=== PATIENT | female | born 1955 | race Caucasian/White ===

== ENCOUNTER 2016-12-20 13:27 | Emergency (ER) | payer BC, OTHER ==
[~2016-12-20] VITALS: Ht 160 cm; Wt 56.8 kg
[2016-12-20 13:44] VITALS: BP 137/85; PULSE 75; RESP 16; TEMP 97.4; O2SAT 100
[2016-12-20] MEDS ORDERED: CEFT250S PO (14:30)
[2016-12-20] MEDS ORDERED: FLUT1SPR5 EACH NARE (14:30)
--- NOTE | 2016-12-20 14:30 | PD ---
HPI Chief Complaint: Headache Time Seen by Provider: 14:18 Travel History International Travel<30 days: No Contact w/Intl Traveler<30days: No Traveled to known affect area: No History of Present Illness HPI This is a 61-year-old female who presents to the emergency department with pressure in her sinuses right on the right side above her eyebrow, constant, moderate severity that's been going on for 3 days associated with low-grade fever, nasal congestion and sore throat. She's had a lot of trouble with sinusitis in the past and has had nasal polyps removed. Last year she went to an ENT at [facility] and her symptoms finally improved after she completed a course of Ceftin. She also typically uses Flonase but she is out of it. [facility] Past Medical History Medical other: Yes (ASTEOPEROSIS ) Tetanus Vaccination: > 5 Years Influenza Vaccination: Yes Past Surgical History Hysterectomy: Yes Social History Alcohol Use: No Tobacco Use: No Substance Use: No Allergies-Medications (Allergen,Severity, Reaction): Coded Allergies: Shellfish (Verified Allergy, Unknown, Hives, 12/20/16) Tetracycline (Verified Allergy, Unknown, Hives, 12/20/16) Reported Meds & Prescriptions Reported Meds & Active Scripts Active No Active Prescriptions or Reported Medications Review of Systems Except as stated in HPI: all other systems reviewed are Neg Physical Exam Narrative GENERAL:Well appearing, no acute distress SKIN: Focused skin assessment warm and dry. HEAD: Atraumatic. Normocephalic. EYES: Pupils equal and round. No injection or drainage. ENT: Posterior pharyngeal erythema with no exudates. Some cobblestoning of the posterior pharynx. NECK: Trachea midline. CARDIOVASCULAR: Regular rate and rhythm. No murmur appreciated. RESPIRATORY: Clear to auscultation. Breath sounds equal bilaterally. GASTROINTESTINAL: Abdomen soft, non-tender, nondistended. MUSCULOSKELETAL: No obvious deformities. NEUROLOGICAL: Awake and alert. No obvious cranial nerve deficits. Moving all extremities. PSYCHIATRIC: Appropriate mood and affect; insight and judgment normal. Data Data Last Documented VS Vital Signs Date Time Temp Pulse Resp B/P Pulse Ox O2 Delivery O2 Flow Rate FiO2 12/20/16 13:44 97.4 75 16 137/85 100 MDM Medical Decision Making Medical Screen Exam Complete: Yes Emergency Medical Condition: Yes Interpretation(s) Afebrile, no tachycardia, normotensive Differential Diagnosis Bacterial sinusitis, viral sinusitis, viral syndrome Narrative Course This is a 61-year-old female who presents to the emergency department with sinus pressure and congestion. She has a history of recurrent sinusitis and has had polypectomy in the past. She is well-appearing and nontoxic. Ceftin is helped her in the past. I will prescribe her Ceftin and Flonase. I think she is appropriate for outpatient management. Diagnosis Primary Impression: Sinusitis Qualified Code: J01.21 - Acute recurrent ethmoidal sinusitis Patient Instructions: General Instructions Additional Instructions: If you develop severe worsening headache, persistent vomiting, numbness, weakness, difficulty walking or difficulty talking return to the emergency department immediately. Med/Other Pt SpecificInfo: Prescription(s) given Scripts Fluticasone Nasal [place] (Flonase Nasal [place])50 Mcg/Act Spray50 Mcg EACH NARE BID #1 BOTTLE Ref 0 Prov:Malinda Kaur MD 12/20/16 Cefuroxime Liq (Ceftin Liq)250 Mg/5 Ml [id number] Mg PO BID 10 Days Ref 0 Prov:Malinda Kaur MD 12/20/16 Disposition: 01 DISCHARGE HOME Condition: Stable Malinda Kaur MD December 20, 2016 14:30
[2016-12-20] MEDS ORDERED: VENTAER INH (21:04)
[2016-12-20] MEDS ORDERED: MONT10TA2 PO (21:04)
[2016-12-20] MEDS ORDERED: CETI10CA3 PO (21:04)
[2016-12-20] MEDS ORDERED: ALBUAER3 INH (21:04)
[2016-12-20] MEDS ORDERED: TH GCAP (21:04)
[2016-12-20] MEDS ORDERED: CALC500T35 (21:04)
[2016-12-20] MEDS ORDERED: ZOFR8TAB PO (22:28)
[2016-12-21] MEDS ORDERED: PROC10TA PO (15:12)
== END 2016-12-20 14:40 | disposition home or self-care (01) ==
LOC: PHED 13:27
DX: J32.9 Chronic sinusitis, unspecified (principal); M81.0 Age-related osteoporosis without current pathological fracture; Z88.8 Allergy status to other drugs, medicaments and biological substances; A08.4 Viral intestinal infection, unspecified; Z79.899 Other long term (current) drug therapy
CPT/HCPCS: 80048; 81001; 83690; 85025; 96361; 96374; 96376; 99284; J2405; J7030

== ENCOUNTER 2016-12-20 19:16 | Emergency (ER) | payer BC, OTHER ==
[~2016-12-20] VITALS: Ht 160 cm; Wt 56.1 kg
[~2016-12-20 19:16] MED LIST: CEFT250S PO; FLUT1SPR5 EACH NARE
[2016-12-20 19:21] VITALS: BP 133/87; PULSE 88; RESP 14; TEMP 97.9; O2SAT 99
[2016-12-20] MEDS ORDERED: SODIUM CHLOR 0.9% 1000 ML INJ 1,000 ML IV SCH ×2 (20:09→21:45)
[2016-12-20] MEDS ORDERED: SODIUM CHLORIDE 0.9% FLUSH 10 ML FLUSH IV FLUSH PRN (20:15)
[2016-12-20] MEDS ORDERED: ONDANSETRON HCL 4 MG/2 ML VIAL IVP ONE (20:15)
--- NOTE | 2016-12-20 20:15 | PD ---
HPI Chief Complaint: GI Complaint Time Seen by Provider: 20:04 Travel History International Travel<30 days: No Contact w/Intl Traveler<30days: No Traveled to known affect area: No History of Present Illness HPI The patient is a 61-year-old female that was seen earlier today and treated as a sinusitis but she states she had nausea and vomiting along with diarrhea and she was not given anything for nausea. The patient denies any blood in the stool or vomitus. She denies any fever. She has not been able to hold anything down, not even clear liquids today. She does feel dehydrated. She still has her appendix and gallbladder. She is visiting by automobile from [place] and plans to go back to [place] on next Sunday. She has no local primary care physician. PFSH Past Medical History ?: Not Past Surgical History Hysterectomy: Yes Social History Alcohol Use: No Tobacco Use: No Substance Use: No Allergies-Medications (Allergen,Severity, Reaction): Coded Allergies: Shellfish (Verified Allergy, Severe, ANAPHALXIS, 12/20/16) Latex (Verified Allergy, Unknown, Hives, 12/20/16) Tetracycline (Verified Allergy, Unknown, Hives, 12/20/16) Reported Meds & Prescriptions Reported Meds & Active Scripts Active Flonase Nasal [place] (Fluticasone Nasal [place]) 50 Mcg/Act [place] 50 Mcg EACH NARE BID Ceftin Liq (Cefuroxime Axetil) 250 Mg/5 Ml Susp 500 Mg PO BID 10 Days Reported Glucosamine & Chondroitin Cap (Glucosam/Chondr/Collagn/Hyalur) 1 Each Capsule Calcium (Oyster Shell) 500 Mg Tab 1,000 [place] Hfa 18 GM Inh (Albuterol Sulfate) 90 Mcg/Act Aer 1 Puff INH Q4H PRN Proair Hfa 8.5 GM Inh (Albuterol Sulfate) 90 Mcg/Act Aer 1 Puff INH Q4H PRN 108 mcg/actuation Zyrtec (Cetirizine HCl) 10 Mg Capsule 10 Mg PO DAILY Singulair (Montelukast Sodium) 10 Mg Tab 10 Mg PO HS Review of Systems Except as stated in HPI: all other systems reviewed are Neg Physical Exam Narrative GENERAL: The patient is alert, oriented 3 in slight apparent distress with her nausea. Her vital signs are normal. She does appear moderately dehydrated. SKIN: Focused skin assessment warm/dry. No skin rash is present. HEAD: Atraumatic. Normocephalic. EYES: Pupils equal and round. No scleral icterus. No injection or drainage. ENT: No nasal bleeding or discharge. Mucous membranes pink but dry. NECK: Trachea midline. No JVD. CARDIOVASCULAR: Regular rate and rhythm. No murmur appreciated. RESPIRATORY: No accessory muscle use. Clear to auscultation. Breath sounds equal bilaterally. GASTROINTESTINAL: Abdomen soft, non-tender, nondistended. Hepatic and splenic margins not palpable. No guarding or rebound is present. MUSCULOSKELETAL: No obvious deformities. No clubbing. No cyanosis. No edema. NEUROLOGICAL: Awake and alert. No obvious cranial nerve deficits. Motor grossly within normal limits. Normal speech. PSYCHIATRIC: Appropriate mood and affect; insight and judgment normal. Data Data Last Documented VS Vital Signs Date Time Temp Pulse Resp B/P Pulse Ox O2 Delivery O2 Flow Rate FiO2 12/20/16 20:47 85 20 145/87 100 12/20/16 19:21 97.9 Orders Basic Metabolic Panel (Bmp) (12/20/16 20:09) Complete Blood Count With Diff (12/20/16 20:09) Iv Access Insert/Monitor (12/20/16 20:09) Ecg Monitoring (12/20/16 20:09) Oximetry (12/20/16 20:09) Ondansetron Inj (Zofran Inj) (12/20/16 20:15) Sodium Chlor 0.9% 1000 Ml Inj (Ns 1000 M (12/20/16 20:09) Sodium Chloride 0.9% Flush (Ns Flush) (12/20/16 20:15) Lipase (12/20/16 20:41) Ondansetron Inj (Zofran Inj) (12/20/16 21:30) Sodium Chlor 0.9% 1000 Ml Inj (Ns 1000 M (12/20/16 21:45) Urinalysis - C+S If Indicated (12/20/16 22:18) Labs Laboratory Tests Test 12/20/16 20:41 White Blood Count 6.6 TH/MM3 Red Blood Count 4.56 MIL/MM3 Hemoglobin 13.5 GM/DL Hematocrit 40.3 % Mean Corpuscular Volume 88.2 FL Mean Corpuscular Hemoglobin 29.5 PG Mean Corpuscular Hemoglobin 33.4 % Concent Red Cell Distribution Width 11.8 % Platelet Count 254 TH/MM3 Mean Platelet Volume 7.9 FL Neutrophils (%) (Auto) 76.2 % Lymphocytes (%) (Auto) 12.3 % Monocytes (%) (Auto) 9.0 % Eosinophils (%) (Auto) 0.1 % Basophils (%) (Auto) 2.4 % Neutrophils # (Auto) 5.0 TH/MM3 Lymphocytes # (Auto) 0.8 TH/MM3 Monocytes # (Auto) 0.6 TH/MM3 Eosinophils # (Auto) 0.0 TH/MM3 Basophils # (Auto) 0.2 TH/MM3 CBC Comment DIFF FINAL Differential Comment Sodium Level 139 MEQ/L Potassium Level 3.8 MEQ/L Chloride Level 103 MEQ/L Carbon Dioxide Level 26.5 MEQ/L Anion Gap 10 MEQ/L Blood Urea Nitrogen 16 MG/DL Creatinine 0.61 MG/DL Estimat Glomerular Filtration 99 ML/MIN Rate Random Glucose 115 MG/DL Calcium Level 9.5 MG/DL Lipase 89 U/L [facility] Medical Decision Making Medical Screen Exam Complete: Yes Emergency Medical Condition: Yes Medical Record Reviewed: Yes Interpretation(s) The basic metabolic profile is normal and the lipase is normal. The CBC is normal. Differential Diagnosis Viral gastroenteritis, gastritis, pancreatitis, cholecystitis Narrative Course It is now 10:25 PM and the patient has urinated. She is able to sit up small amounts of liquids. She still feels slightly nauseated but she does not want any more nausea medication. The low white count suggest viral etiology. Impression: Viral gastroenteritis Plan: The patient be given Zofran 8 mg 3 times daily. She should drink Diagnosis Primary Impression: Viral gastroenteritis Additional Instructions: As we discussed, drink Gatorade and clear liquids to make sure you stay well- hydrated. Stick with clear liquids for the first day or 2 and had Jell-O, applesauce as you tolerate them. Return to emergency department if you start vomiting again. Med/Other Pt SpecificInfo: Prescription(s) given Scripts Ondansetron (Zofran)8 Mg Tab8 Mg PO TID #30 TAB Ref 0 Prov:Wayne Najera MD 12/20/16 Disposition: 01 DISCHARGE HOME Condition: Stable Wayne Najera MD December 20, 2016 20:14
[2016-12-20 20:45] LABS: BASOPHIL # 0.2 TH/MM3 (0-0.2); BASOPHIL % 2.4 % (0.0-2.0); EOSINOPHIL % 0.1 % (0.0-4.0); HEMATOCRIT 40.3 % (35.0-46.0); HEMO FLAGS DIFF FINAL; LYMPH % 12.3 % (9.0-44.0); LYMPHOCYTE # 0.8 TH/MM3 (1.0-4.8); MEAN CELL VOLUME 88.2 FL (80.0-100.0); MEAN CORPUSCULAR HEMOGLOBIN 29.5 PG (27.0-34.0); MEAN CORPUSCULAR HGB CONC 33.4 % (32.0-36.0); NEUT % 76.2 % (16.0-70.0); PLATELET COUNT 254 TH/MM3 (150-450); RED BLOOD COUNT 4.56 MIL/MM3 (4.00-5.30); RED CELL DISTRIBUTION WIDTH 11.8 % (11.6-17.2); WHITE BLOOD COUNT 6.6 TH/MM3 (4.0-11.0)
[2016-12-20 20:47] VITALS: BP 145/87; PULSE 85; RESP 20; O2SAT 100
[2016-12-20 20:52] LABS: POTASSIUM 3.8 MEQ/L (3.5-5.1)
[2016-12-20 20:55] LABS: BICARBONATE 26.5 MEQ/L (21.0-32.0)
[2016-12-20] MEDS ORDERED: CALC500T35 (21:04)
[2016-12-20] MEDS ORDERED: CETI10CA3 PO (21:04)
[2016-12-20] MEDS ORDERED: VENTAER INH (21:04)
[2016-12-20] MEDS ORDERED: ALBUAER3 INH (21:04)
[2016-12-20] MEDS ORDERED: TH GCAP (21:04)
[2016-12-20] MEDS ORDERED: MONT10TA2 PO (21:04)
[2016-12-20] MEDS ORDERED: ONDANSETRON HCL 4 MG/2 ML VIAL IV ONE (21:30)
[2016-12-20] MEDS ORDERED: ZOFR8TAB PO (22:28)
[2016-12-20 23:17] VITALS: BP 137/74
[2016-12-20 23:19] LABS: BLOOD, URINE LARGE (NEG); GLUCOSE,URINE NEG (NEG); NITRITE,URINE NEG (NEG); PH, URINE 5.5 (5.0-8.5)
[2016-12-20 23:26] LABS: KETONE, URINE 80 OR GREATER mg/dL (NEG)
[2016-12-20 23:29] LABS: URINE COLOR YELLOW (YELLW/STRAW); WBC, URINE 0-2 /hpf (0-5)
[2016-12-20 23:30] LABS: COMMENT (UR) CULT NOT INDICATED; CULTURE IF INDICATED CULT NOT INDICATED; SQUAMOUS EPITHELIAL CELL URINE 0-5 /hpf (0-5)
[2016-12-21] MEDS ORDERED: PROC10TA PO (15:12)
== END 2016-12-21 00:32 | disposition home or self-care (01) ==
LOC: PHED 19:16
DX: A08.4 Viral intestinal infection, unspecified (principal); Z79.899 Other long term (current) drug therapy
CPT/HCPCS: 80048; 81001; 83690; 85025; 96361; 96374; 96376; 99284; J2405; J7030

== ENCOUNTER 2016-12-21 12:43 | Emergency (ER) | payer BC, OTHER ==
[~2016-12-21] VITALS: Ht 160 cm; Wt 57.0 kg
[~2016-12-21 12:43] MED LIST changes: +ALBUAER3 INH; +CALC500T35; +CETI10CA3 PO; +MONT10TA2 PO; +TH GCAP; +VENTAER INH; +ZOFR8TAB PO
[2016-12-21 12:54] VITALS: BP 133/81; PULSE 74; RESP 15; TEMP 98.3; O2SAT 100
[2016-12-21] MEDS ORDERED: SODIUM CHLOR 0.9% 1000 ML INJ 1,000 ML IV SCH (13:45)
[2016-12-21] MEDS ORDERED: PROCHLORPERAZINE INJ 10 MG/2 ML VIAL IV PUSH ONE (13:45)
[2016-12-21] MEDS ORDERED: diphenhydrAMINE HCL 50 MG/ML VIAL IV PUSH ONE (13:45)
--- NOTE | 2016-12-21 13:54 | PD ---
HPI Chief Complaint: GI Complaint Time Seen by Provider: 13:11 Travel History International Travel<30 days: No Contact w/Intl Traveler<30days: No Traveled to known affect area: No History of Present Illness HPI This 60 year-old woman presents to the emergency department with nausea vomiting diarrhea. She first started getting sick several days ago. Started with some malaise symptoms. About 2 days ago she started with nausea vomiting diarrhea. She is in the emergency department twice yesterday. She had a perception for anabiotic some for Zofran. She states it is not really helping her and she sought vomiting and diarrhea this morning. The diarrhea is sort of just loose, not profoundly watery. She doesn't really have any abdominal pain. She is a history of gastroparesis and used to take domperidone, doesn't taking anything now. is sick with similar but much more mild symptoms. No other complaints. History Past Medical History Narrative Medical Osteoporosis History of gastroparesis Tetanus Vaccination: Unknown Menopausal: No : 2 Para: 2 Social History Alcohol Use: No Tobacco Use: No (QUIT AT AGE 17) Allergies-Medications (Allergen,Severity, Reaction): Coded Allergies: Shellfish (Verified Allergy, Severe, ANAPHALXIS, 12/21/16) Latex (Verified Allergy, Unknown, Hives, 12/21/16) Tetracycline (Verified Allergy, Unknown, Hives, 12/21/16) Reported Meds & Prescriptions Reported Meds & Active Scripts Active Zofran (Ondansetron HCl) 8 Mg Tab 8 Mg PO TID Flonase Nasal [place] (Fluticasone Nasal [place]) 50 Mcg/Act [place] 50 Mcg EACH NARE BID Ceftin Liq (Cefuroxime Axetil) 250 Mg/5 Ml Susp 500 Mg PO BID 10 Days Reported Glucosamine & Chondroitin Cap (Glucosam/Chondr/Collagn/Hyalur) 1 Each Capsule Calcium (Oyster Shell) 500 Mg Tab 1,000 Proair Hfa 8.5 GM Inh (Albuterol Sulfate) 90 Mcg/Act Aer 1 Puff INH Q4H PRN 108 mcg/actuation Zyrtec (Cetirizine HCl) 10 Mg Capsule 10 Mg PO DAILY Singulair (Montelukast Sodium) 10 Mg Tab 10 Mg PO HS Review of Systems Except as stated in HPI: all other systems reviewed are Neg Physical Exam Narrative GENERAL: Well-appearing 61-year-old woman, no acute distress. SKIN: Focused skin assessment warm/dry. NECK: Trachea midline. No JVD. CARDIOVASCULAR: Regular rate and rhythm. No murmur appreciated. RESPIRATORY: No accessory muscle use. Clear to auscultation. Breath sounds equal bilaterally. GASTROINTESTINAL: Abdomen soft, non-tender, nondistended. Hepatic and splenic margins not palpable. MUSCULOSKELETAL: No obvious deformities. No edema. NEUROLOGICAL: Awake and alert. No obvious cranial nerve deficits. Motor grossly within normal limits. Normal speech. PSYCHIATRIC: Appropriate mood and affect; insight and judgment normal. Data Data Last Documented VS Vital Signs Date Time Temp Pulse Resp B/P Pulse Ox O2 Delivery O2 Flow Rate FiO2 12/21/16 12:54 98.3 74 15 133/81 100 Orders Basic Metabolic Panel (Bmp) (12/21/16 13:36) Iv Access Insert/Monitor (12/21/16 13:36) Sodium Chlor 0.9% 1000 Ml Inj (Ns 1000 M (12/21/16 13:45) Prochlorperazine Inj (Compazine Inj) (12/21/16 13:45) Diphenhydramine Inj (Benadryl Inj) (12/21/16 13:45) Labs Laboratory Tests Test 12/21/16 13:40 Sodium Level 140 MEQ/L Potassium Level 4.1 MEQ/L Chloride Level 105 MEQ/L Carbon Dioxide Level 27.8 MEQ/L Anion Gap 7 MEQ/L Blood Urea Nitrogen 14 MG/DL Creatinine 0.57 MG/DL Estimat Glomerular Filtration 107 ML/MIN Rate Random Glucose 102 MG/DL Calcium Level 8.7 MG/DL [facility] Medical Decision Making Medical Screen Exam Complete: Yes Emergency Medical Condition: Yes Interpretation(s) BMP is unremarkable. Differential Diagnosis Viral gastroenteritis, food poisoning, gastroparesis, dehydration, electrolyte abnormality, other Narrative Course Medical decision making INITIAL: 60 year-old woman presents emergent [place] nausea vomiting diarrhea. She looks well. She is upset because she still having some vomiting. Short incubating down. She doesn't look overtly dehydrated. We'll check labs, IV fluids. She's had trouble gastroparesis and vomiting in the past. We'll give her some Compazine, and ma may give Compazine and Zofran for her. Diagnosis Primary Impression: Viral gastroenteritis Additional Instructions: Take Zofran 3 times daily until symptoms resolve. Take Compazine as prescribed in addition to the Zofran as needed for nausea or vomiting. Drink plenty of fluids to stay well-hydrated. Return to the emergency department for any new or worsening symptoms. Med/Other Pt SpecificInfo: Prescription(s) given Scripts Prochlorperazine Maleate 10 Mg Tab10 Mg PO Q6H PRN (NAUSEA OR VOMITING) #12 TAB Ref 0 Prov:Jacob Bennett MD 12/21/16 Disposition: 01 DISCHARGE HOME Condition: Stable Jacob Bennett MD Dec 21, 2016 13:54
[2016-12-21 14:33] LABS: POTASSIUM 4.1 MEQ/L (3.5-5.1)
[2016-12-21 14:34] LABS: BICARBONATE 27.8 MEQ/L (21.0-32.0)
[2016-12-21] MEDS ORDERED: PROC10TA PO (15:12)
== END 2016-12-21 15:25 | disposition home or self-care (01) ==
LOC: PHED 12:43
DX: A08.4 Viral intestinal infection, unspecified (principal)
CPT/HCPCS: 80048; 96361; 96374; 96375; 99284; J0780; J1200; J7030